=== PATIENT | female | born 1980 | race Caucasian/White ===

== ENCOUNTER 2017-07-27 17:43 | Emergency (ER) | payer MEDICAID ==
[~2017-07-27] VITALS: Ht 149.9 cm; Wt 59.4 kg
[~2017-07-27 17:43] MED LIST: AUGM875T3 PO; TRI-TAB PO
[2017-07-27 17:44] VITALS: BP 132/87; PULSE 105; RESP 16; TEMP 98.8; O2SAT 99
[2017-07-27] MEDS ORDERED: SE-NCHW CHEW (18:23)
--- NOTE | 2017-07-27 18:24 | PD ---
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 37-year-old presents for evaluation of vaginal bleeding and cramping. She reports that her last menstrual period was in March. Last month she had a positive test at home and she had another positive test 2 days ago. She reports that 2 days ago she started having some vaginal spotting and that is why she repeated the test. She has not yet established care with a vp integrity but she has an appointment on August 14. She reports that 2 hours prior to arrival she began having pelvic cramping and heavier vaginal bleeding. She reports that she has used 3 pads in the past few hours. The crampy pain is primarily in the suprapubic and bilateral adnexal region, constant, no aggravating or relieving factors. Denies nausea, vomiting, diarrhea, constipation, flank pain, dysuria. She believes that her blood type is O+. She has no other complaints at this time. [facility] Social History Alcohol Use: No Tobacco Use: No Allergies-Medications (Allergen,Severity, Reaction): Coded Allergies: penicillin G (Unverified Allergy, Intermediate, itching all over., 02/12/17 ) Reported Meds & Prescriptions Reported Meds & Active Scripts Active Reported Se-Alexandra 19 29-1 mg Chew ( Vit W/ Ferrous Fumara Chew) 1 Chew 1 Tab CHEW DAILY Review of Systems Except as stated in HPI: all other systems reviewed are Neg Physical Exam Narrative GENERAL: Well-developed well-nourished female no acute distress SKIN: Warm and dry. HEAD: Atraumatic. Normocephalic. EYES: Pupils equal and round. No scleral icterus. No injection or drainage. ENT: No nasal bleeding or discharge. Mucous membranes pink and moist. NECK: Trachea midline. No JVD. CARDIOVASCULAR: Regular rate and rhythm. No murmur appreciated. RESPIRATORY: No accessory muscle use. Clear to auscultation. Breath sounds equal bilaterally. GASTROINTESTINAL: Abdomen soft, mild tenderness to palpation in the lower quadrants without guarding. No CVA tenderness. MUSCULOSKELETAL: No obvious deformities. No clubbing. No cyanosis. No edema. NEUROLOGICAL: Awake and alert. No obvious cranial nerve deficits. Motor grossly within normal limits. Normal speech. PSYCHIATRIC: Appropriate mood and affect; insight and judgment normal. Data Data Last Documented VS Vital Signs Date Time Temp Pulse Resp B/P (MAP) Pulse Ox O2 Delivery O2 Flow Rate FiO2 07/27/17 19:16 77 14 114/60 (78) 100 07/27/17 17:44 98.8 Orders Orders Beta Hcg (Quant/Titer) (07/27/17 18:20) Complete Blood Count With Diff (07/27/17 18:20) Complete Rh (07/27/17 18:20) Urinalysis - C+S If Indicated (07/27/17 18:20) Ed Urine Pregnancytest Poc (07/27/17 18:20) Us Pelvis (Ques Pr/Ect)W Trans (07/27/17 ) Consult Obstetrics (07/27/17 ) Comprehensive Metabolic Panel (07/27/17 21:49) Ed Discharge Order (07/27/17 22:08) (Hub Use Only)Inp Phy Cons/Ref (07/27/17 ) Methotrexate Pf Inj (Methotrexate Pf Inj (07/27/17 22:30) Labs Laboratory Tests Test 07/27/17 18:30 07/27/17 18:35 Urine Color DARK-RED Urine Turbidity CLOUDY Urine pH 6.0 Urine Specific [place] 1.015 Urine Protein 100 mg/dL Urine Glucose (UA) NEG mg/dL Urine Ketones NEG mg/dL Urine Occult Blood LARGE Urine Nitrite NEG Urine Bilirubin NEG Urine Urobilinogen LESS THAN 2.0 MG/DL Urine Leukocyte Esterase SMALL Urine RBC /hpf Urine WBC 6 /hpf Urine Amorphous Sediment RARE Microscopic Urinalysis Comment CULT NOT INDICATED White Blood Count 8.6 TH/MM3 Red Blood Count 4.08 MIL/MM3 Hemoglobin 12.0 GM/DL Hematocrit 35.3 % Mean Corpuscular Volume 86.6 FL Mean Corpuscular Hemoglobin 29.3 PG Mean Corpuscular Hemoglobin Concent 33.8 % Red Cell Distribution Width 14.9 % Platelet Count 253 TH/MM3 Mean Platelet Volume 8.2 FL Neutrophils (%) (Auto) 69.1 % Lymphocytes (%) (Auto) 21.6 % Monocytes (%) (Auto) 7.9 % Eosinophils (%) (Auto) 1.0 % Basophils (%) (Auto) 0.4 % Neutrophils # (Auto) 5.9 TH/MM3 Lymphocytes # (Auto) 1.9 TH/MM3 Monocytes # (Auto) 0.7 TH/MM3 Eosinophils # (Auto) 0.1 TH/MM3 Basophils # (Auto) 0.0 TH/MM3 CBC Comment DIFF FINAL Differential Comment Blood Urea Nitrogen 15 MG/DL Creatinine 0.59 MG/DL Random Glucose 94 MG/DL Total Protein 7.2 GM/DL Albumin 3.5 GM/DL Calcium Level 8.6 MG/DL Alkaline Phosphatase 100 U/L Aspartate Amino Transf (AST/SGOT) 39 U/L Alanine Aminotransferase (ALT/SGPT) 45 U/L Total Bilirubin 0.2 MG/DL Sodium Level 139 MEQ/L Potassium Level 3.5 MEQ/L Chloride Level 109 MEQ/L Carbon Dioxide Level 21.5 MEQ/L Anion Gap 9 MEQ/L Estimat Glomerular Filtration Rate 115 ML/MIN Human Chorionic Gonadotropin, Quant 3152 MIU/ML MDM Medical Decision Making Medical Screen Exam Complete: Yes Emergency Medical Condition: Yes Medical Record Reviewed: Yes Differential Diagnosis Threatened , ectopic , demise Narrative Course CBC is unremarkable. Urine test is negative. Quantitative beta-hCG is 3152. Blood type is O+. Transvaginal ultrasound reveals CONCLUSION: Findings are highly suspicious for ectopic in the right adnexa with slight fluid suspicious for hemorrhage. Discussed with vp integrity sand control worker Dr. Ann who will come and see the patient in the ER. She is hemodynamically stable. Dr. Ann discussed in great detail with the patient her diagnosis, potential treatment with methotrexate, for which she consents, she is placing the orders. For ease of follow-up, she is having the patient return to the emergency room on Friday for her routine post-methotrexate 4 day repeat quantitative beta- hCG. She is sand control worker on and she will evaluate the results at that time. She is also having the patient return to the emergency room on Friday for 7-day repeat quantitative beta-hCG. She is sand control worker on Friday as well. Discussed all signs and symptoms that would warrant returning more urgently to the emergency room. She is stable for discharge. Diagnosis Primary Impression: Ectopic Additional Instructions: As discussed, return to the emergency room on July 30, for repeat quantitative beta-hCG. Return on August 02, for repeat quantitative beta hCG. If you develop severe abdominal pain, pass out, develop fevers, return immediately to the emergency room. Med/Other Pt SpecificInfo: No Change to Meds Disposition: 01 DISCHARGE HOME Condition: Stable Yifan Liang Jul 27, 2017 18:24
[2017-07-27 19:04] LABS: AUTOMATED NEUTROPHIL # 5.9 TH/MM3 (1.8-7.7); BASOPHIL % 0.4 % (0.0-2.0); EOSINOPHIL # 0.1 TH/MM3 (0-0.4); HEMATOCRIT 35.3 % (35.0-46.0); LYMPH % 21.6 % (9.0-44.0); LYMPHOCYTE # 1.9 TH/MM3 (1.0-4.8); MEAN CELL VOLUME 86.6 FL (80.0-100.0); MEAN CORPUSCULAR HEMOGLOBIN 29.3 PG (27.0-34.0); MEAN CORPUSCULAR HGB CONC 33.8 % (32.0-36.0); MEAN PLATELET VOLUME 8.2 FL (7.0-11.0); MONO % 7.9 % (0.0-8.0); MONOCYTE # 0.7 TH/MM3 (0-0.9); NEUT % 69.1 % (16.0-70.0); PLATELET COUNT 253 TH/MM3 (150-450); RED BLOOD COUNT 4.08 MIL/MM3 (4.00-5.30); RED CELL DISTRIBUTION WIDTH 14.9 % (11.6-17.2); WHITE BLOOD COUNT 8.6 TH/MM3 (4.0-11.0)
[2017-07-27 19:06] LABS: AMORPHOUS SEDIMENT, URINE RARE; BILIRUBIN, URINE NEG (NEG); BLOOD, URINE LARGE (NEG); GLUCOSE,URINE NEG (NEG); KETONE, URINE NEG (NEG); NITRITE,URINE NEG (NEG); URINE COLOR DARK-RED (YELLW/STRAW); URINE LEUKOCYTE ESTERASE SMALL (NEG)
[2017-07-27 19:16] VITALS: BP 114/60; PULSE 77; RESP 14; O2SAT 100
--- NOTE | 2017-07-27 20:18 | PD ---
Physical Exam Narrative General: The patient is a well-developed well-nourished female in no acute distress Head and Neck exam: Head is normocephalic atraumatic. Eyes: Pupils are equal round and reactive to light. Nose: Midline septum with pink mucous membranes Mouth: Dentition unremarkable. Moist mucus membranes. Posterior oropharynx is not erythematous. No tonsillar hypertrophy. Uvula midline. Airway patent. Neck: No palpable lymphadenopathy. No nuchal rigidity. No thyromegaly. Cardiovascular: Regular rate and rhythm without murmurs, gallops, or rubs. Lungs: Clear to auscultation bilaterally. No wheezes, rhonchi, or rales. Abdomen: Soft, tenderness on palpation in the suprapubic area and bilateral lower quadrants of the abdomen. No guarding, rebound, or rigidity. Normal bowel sounds are audible. Extremities: No clubbing, cyanosis, or edema. No calf tenderness on palpation. Back: No spinous process tenderness to palpation. The patient reports having bilateral CVA tenderness on palpation. Neurologic Exam: Grossly nonfocal. Skin Exam: No rash noted. Intact skin that is warm and dry. Data Data Last Documented VS Vital Signs Date Time Temp Pulse Resp B/P (MAP) Pulse Ox O2 Delivery O2 Flow Rate FiO2 07/27/17 23:41 07/27/17 23:22 82 14 99 07/27/17 17:44 98.8 Orders Orders Beta Hcg (Quant/Titer) (07/27/17 18:20) Complete Blood Count With Diff (07/27/17 18:20) Complete Rh (07/27/17 18:20) Urinalysis - C+S If Indicated (07/27/17 18:20) Ed Urine Pregnancytest Poc (07/27/17 18:20) Us Pelvis (Ques Pr/Ect)W Trans (07/27/17 ) Consult Obstetrics (07/27/17 ) Comprehensive Metabolic Panel (07/27/17 21:49) Ed Discharge Order (07/27/17 22:08) (Hub Use Only)Inp Phy Cons/Ref (07/27/17 ) Methotrexate Pf Inj (Methotrexate Pf Inj (07/27/17 22:30) Methotrexate Pf Inj (Methotrexate Pf Inj (07/27/17 22:45) Labs Laboratory Tests Test 07/27/17 18:30 07/27/17 18:35 Urine Color DARK-RED Urine Turbidity CLOUDY Urine pH 6.0 Urine Specific [place] 1.015 Urine Protein 100 mg/dL Urine Glucose (UA) NEG mg/dL Urine Ketones NEG mg/dL Urine Occult Blood LARGE Urine Nitrite NEG Urine Bilirubin NEG Urine Urobilinogen LESS THAN 2.0 MG/DL Urine Leukocyte Esterase SMALL Urine RBC /hpf Urine WBC 6 /hpf Urine Amorphous Sediment RARE Microscopic Urinalysis Comment CULT NOT INDICATED White Blood Count 8.6 TH/MM3 Red Blood Count 4.08 MIL/MM3 Hemoglobin 12.0 GM/DL Hematocrit 35.3 % Mean Corpuscular Volume 86.6 FL Mean Corpuscular Hemoglobin 29.3 PG Mean Corpuscular Hemoglobin Concent 33.8 % Red Cell Distribution Width 14.9 % Platelet Count 253 TH/MM3 Mean Platelet Volume 8.2 FL Neutrophils (%) (Auto) 69.1 % Lymphocytes (%) (Auto) 21.6 % Monocytes (%) (Auto) 7.9 % Eosinophils (%) (Auto) 1.0 % Basophils (%) (Auto) 0.4 % Neutrophils # (Auto) 5.9 TH/MM3 Lymphocytes # (Auto) 1.9 TH/MM3 Monocytes # (Auto) 0.7 TH/MM3 Eosinophils # (Auto) 0.1 TH/MM3 Basophils # (Auto) 0.0 TH/MM3 CBC Comment DIFF FINAL Differential Comment Blood Urea Nitrogen 15 MG/DL Creatinine 0.59 MG/DL Random Glucose 94 MG/DL Total Protein 7.2 GM/DL Albumin 3.5 GM/DL Calcium Level 8.6 MG/DL Alkaline Phosphatase 100 U/L Aspartate Amino Transf (AST/SGOT) 39 U/L Alanine Aminotransferase (ALT/SGPT) 45 U/L Total Bilirubin 0.2 MG/DL Sodium Level 139 MEQ/L Potassium Level 3.5 MEQ/L Chloride Level 109 MEQ/L Carbon Dioxide Level 21.5 MEQ/L Anion Gap 9 MEQ/L Estimat Glomerular Filtration Rate 115 ML/MIN Human Chorionic Gonadotropin, Quant 3152 MIU/ML [facility] Medical Record Reviewed: Yes Supervised Visit with KESHAWN: Yes Narrative Course I, Dr. Navas, have reviewed the advance practice practitioner's documentation and am in agreement, met with the patient face to face, made the diagnosis, and the medical decision making was done by me. The patient was initially evaluated by Yifan. Please see their complete history and physical. *My assessment and Findings: The patient presents with a history of vaginal bleeding and cramping reports that she has had a positive test at home. The patient is reportedly a . 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 The patient reports that her last was delivered vaginally without complication. During the course of the patients emergency department visit, the patients history, examination, and differential diagnosis were reviewed with the patient. The patient was placed on a air sampling and monitoring with oximetry and frequent blood pressure monitoring. The patient had IV access obtained and blood work sent for analysis. The patients laboratory studies were reviewed and remarkable for a CBC that is within normal limits, quantitative beta hCG is 3152, urinalysis shows 100 protein, large occult blood, small leukocyte esterase, innumerable rbc's, 6 wbc' s, culture not indicated. Blood type is O+, therefore RhoGAM is not indicated. Radiology studies were reviewed and remarkable for an ultrasound that showed findings highly suspicious for ectopic in the right adnexa with slight fluid suspicious for hemorrhage. The OB ED hospitalist was consulted regarding this patient's case. They did come to the emergency department and evaluate the patient. A CMP was added onto the patient's laboratory studies in preparation for starting the patient on methotrexate. Further recommendations of the OB hospitalist the patient was given methotrexate and will follow up per their recommendations of the emergency department. The patient is resting comfortably and feels better, is alert and in no distress. The patients results and examination findings were discussed with the patient. The repeat examination is unremarkable and benign. The history, exam, diagnostic testing, and current condition do not suggest any significant pathology to warrant further testing, continued ED treatment, admission, or surgical evaluation at this point. The vital signs have been stable. The patient does not have uncontrollable pain, intractable vomiting, or other significant symptoms. The patient's condition is stable and appropriate for discharge. The patient will pursue further outpatient evaluation with a primary care physician or other designated or consulting physician as indicated in the discharge instructions. The patient expressed understanding and was agreeable with this plan. Diagnosis Primary Impression: Ectopic Qualified Codes: O00.90 - Unspecified ectopic without intrauterine Alessandra Navas MD Jul 27, 2017 20:18
--- NOTE | 2017-07-27 20:58 | RADRPT ---
EXAM DATE/TIME: 07/27/2017 19:33 [place] COMPARISON: No previous studies available for comparison. INDICATIONS : Bleeding and pain with . LAB(S): Beta-hC MEDICAL HISTORY : . Gestational diabetes. SURGICAL HISTORY : None. ENCOUNTER: Initial ACUITY: 1 day PAIN SCORE: 7/10 LOCATION: Bilateral pelvis MEASUREMENTS: UTERUS: 9.8 x 8.2 x 5.5 cm ENDOMETRIAL STRIPE: 17 mm RIGHT OVARY: 7.2 x 4.3 x 4.6 cm LEFT OVARY: Non visualized. FREE FLUID: Yes Adjacent to the right ovary. CROWN RUMP LENGTH: Non visualized. = WKS DAYS FHR: Non visualized. BPM FINDINGS: Endometrial stripe appears thickened without evidence for intrauterine gestational sac areas multiple tiny nabothian cysts are seen. There is a cystic area in the right ovary measures 6.1 cm in size par ts of it appears like a tubular ring suspicious for ectopic with what appears to be possibl y nodular within it could questionably be a crown-rump. There is slight fluid in the right adnexa adj acent to the right ovary. CONCLUSION: Findings are highly suspicious for ectopic in the right adnexa with slight fluid suspicious for hemorrhage. Lauro Mera MD on July 27, 2017 at 20:51 Board Certified Radiologist. This report was verified electronically.
[2017-07-27 22:05] LABS: ALBUMIN 3.5 GM/DL (3.4-5.0); ALT (GPT) 45 U/L (10-53); AST (GOT) 39 U/L (15-37); BICARBONATE 21.5 MEQ/L (21.0-32.0); BLOOD UREA NITROGEN 15 MG/DL (7-18); CALCIUM 8.6 MG/DL (8.5-10.1); CHLORIDE 109 MEQ/L (98-107); CREATININE 0.59 MG/DL (0.50-1.00); GLOMERULAR FILTRATION RATE 115 ML/MIN (>89); GLUCOSE,RANDOM 94 MG/DL (74-106); SODIUM (NA) 139 MEQ/L (136-145)
[2017-07-27 22:07] LABS: ALKALINE PHOSPHATASE 100 U/L (45-117); TOTAL BILIRUBIN ADULT 0.2 MG/DL (0.2-1.0); TOTAL PROTEIN 7.2 GM/DL (6.4-8.2)
[2017-07-27] MEDS ORDERED: METHOTREXATE SOD PF 50 MG/2 ML VIAL IM SCH (22:30)
--- NOTE | 2017-07-27 22:41 | PD.CONS ---
HPI Chief Complaint VB in preg Date Seen: Jul 27, 2017 Time Seen: 20:29 Travel History International Travel<30 Days: No Contact w/Intl Traveler<30Days: No Known Affected Area: No History of Present Illness HPI Pt is a 37y/o with irregular cycles and positive UPT. LMP was March. Pt had a positive home test recently and started spotting on Friday and bleeding heavily today. She came to the ED for evaluation. She reports that the bleeding was heavy with 2-3 pads per hour but now is minimal. She has not seen an OBGYN since March ([facility]). This is a desired . In the ED, pt had labs performed and TVUS which was concerning for a R ectopic . Uterus is empty. Para: 1 : 2 History Past Medical History Medical History: Denies Significant Hx Obstetric History Obstetric History 1. 14m ago 2. current Past Surgical History Narrative Surgical LSC ovarian cystectomy Family History Family History: Negative Social History Alcohol Use: No Tobacco Use: No Substance Abuse: No Allergies-Medications (Allergen,Severity, Reaction): Coded Allergies: penicillin G (Unverified Allergy, Intermediate, itching all over., 02/12/17 ) Home Meds Reported Medications Vit W/ Ferrous Fumara Chew (Se- 19 29-1 mg Chew) 1 Chew, 1 TAB CHEW DAILY for Nutritional Supplement, EA 0 Refills 07/27/17 Discontinued Reported Medications Amoxicillin-Clavulanate (Augmentin) 875-125 Mg Tab, 1 TAB PO BID for Infection, TAB 0 Refills 02/12/17 Discontinued Scripts Norgestimate-Ethinyl Estradiol (Tri-Sprintec) 0.18/0.215/0.25 Mg-35 Mcg Tab, 1 TAB PO DAILY, #1 PACK 11 Refills Prov:Bere Escoto 02/12/17 Review of Systems Except as stated in HPI: all other systems reviewed are Neg Physical Exam Vital Signs Date Time Temp Pulse Resp B/P (MAP) Pulse Ox O2 Delivery O2 Flow Rate FiO2 07/27/17 19:16 77 14 114/60 (78) 100 07/27/17 19:14 77 14 07/27/17 17:44 98.8 105 16 132/87 (102) 99 Narrative General: well developed, well nourished, no acute distress HEENT: normocephalic atraumatic, extraocular movements intact, neck supple Abdomen: soft, nontender, nondistended Extremities: full range of motion Skin: normal coloration, no rashes, no suspicious skin lesions noted Neurologic: cranial nerves 2-12 grossly intact, normal muscle tone, normal gait Psychiatric: normal mood and affect, appropriate Pelvic: deferred Data Data Vital Signs Reviewed: Yes Orders Orders Beta Hcg (Quant/Titer) (07/27/17 18:20) Complete Blood Count With Diff (07/27/17 18:20) Complete Rh (07/27/17 18:20) Urinalysis - C+S If Indicated (07/27/17 18:20) Ed Urine Pregnancytest Poc (07/27/17 18:20) Us Pelvis (Ques Pr/Ect)W Trans (07/27/17 ) Consult Obstetrics (07/27/17 ) Comprehensive Metabolic Panel (07/27/17 21:49) Ed Discharge Order (07/27/17 22:08) (Hub Use Only)Inp Phy Cons/Ref (07/27/17 ) Methotrexate Pf Inj (Methotrexate Pf Inj (07/27/17 22:30) Labs Laboratory Tests Test 07/27/17 18:30 07/27/17 18:35 Urine Color DARK-RED Urine Turbidity CLOUDY Urine pH 6.0 Urine Specific [place] 1.015 Urine Protein 100 Urine Glucose (UA) NEG Urine Ketones NEG Urine Occult Blood LARGE Urine Nitrite NEG Urine Bilirubin NEG Urine Urobilinogen LESS THAN 2.0 Urine Leukocyte Esterase SMALL Urine RBC Urine WBC 6 Urine Amorphous Sediment RARE Microscopic Urinalysis Comment CULT NOT INDICATED White Blood Count 8.6 Red Blood Count 4.08 Hemoglobin 12.0 Hematocrit 35.3 Mean Corpuscular Volume 86.6 Mean Corpuscular Hemoglobin 29.3 Mean Corpuscular Hemoglobin Concent 33.8 Red Cell Distribution Width 14.9 Platelet Count 253 Mean Platelet Volume 8.2 Neutrophils (%) (Auto) 69.1 Lymphocytes (%) (Auto) 21.6 Monocytes (%) (Auto) 7.9 Eosinophils (%) (Auto) 1.0 Basophils (%) (Auto) 0.4 Neutrophils # (Auto) 5.9 Lymphocytes # (Auto) 1.9 Monocytes # (Auto) 0.7 Eosinophils # (Auto) 0.1 Basophils # (Auto) 0.0 CBC Comment DIFF FINAL Differential Comment Blood Urea Nitrogen 15 Creatinine 0.59 Random Glucose 94 Total Protein 7.2 Albumin 3.5 Calcium Level 8.6 Alkaline Phosphatase 100 Aspartate Amino Transf (AST/SGOT) 39 Alanine Aminotransferase (ALT/SGPT) 45 Total Bilirubin 0.2 Sodium Level 139 Potassium Level 3.5 Chloride Level 109 Carbon Dioxide Level 21.5 Anion Gap 9 Estimat Glomerular Filtration Rate 115 Human Chorionic Gonadotropin, Quant 3152 TVUS: UTERUS: 9.8 x 8.2 x 5.5 cm ENDOMETRIAL STRIPE: 17 mm RIGHT OVARY: 7.2 x 4.3 x 4.6 cm LEFT OVARY: Non visualized. FREE FLUID: Yes Adjacent to the right ovary. CROWN RUMP LENGTH: Non visualized. = WKS DAYS FINDINGS: Endometrial stripe appears thickened without evidence for intrauterine gestational sac areas multiple tiny nabothian cysts are seen. There is a cystic area in the right ovary measures 6.1 cm in size parts of it appears like a tubular ring suspicious for ectopic with what appears to be possibly nodular within it could questionably be a crown-rump. There is slight fluid in the right adnexa adjacent to the right ovary. CONCLUSION: Findings are highly suspicious for ectopic in the right adnexa with slight fluid suspicious for hemorrhage. [facility] Medical Record Reviewed: Yes Plan 37y/o with likely R ectopic and VB. Pt counseled on dx and inability for this to achieve viability. She and were appropriately tearful. They were counseled on tx options including MTX and surgery. In cases where pts are hemodynamically stable ( which she is), MTX is preferred. Risks, benefits and alternatives of methotrexate therapy discussed with the patient. She is hemodynamically stable at this time. Her laboratory assessment is within normal limits and she has no other contraindications to treatment. I emphasized her need to be compliant with regular follow up of quantitative CGs and that this could take several weeks to resolve. We discussed approximately a 10-20% risk of requiring a second dose of methotrexate if fall in HCG if not sufficient between 4 and 7 days. If she goes on to need another dose of MTX, there is a 5-8% risk of subsequently needing surgery. I stated that she should expect mild abdominal pain over the next week as a side effect of the MTX. However, if she experiences severe and sudden abdominal pain, this could be a sign of a ruptured ectopic and she should present to the ED immediately. I strongly emphasized that she must avoid as this could complicate her follow up. She agreed to use abstinence for control until resolution of this . All questions were answered. 1. Ectopic - vitals stable, no pain on exam no signs of rupture, no cardiac activity , able to follow-up - Rh + - consent for MTX, given 70mg IM per BSA dosing - counseled not to take PNV, folic acid, NSAIDs, EtOH - tylenol for mild pain and cramps that may occur from MTX - STRICT ectopic precautions, advised to come back with abdominal pain despite medication, vaginal bleeding or other concerning signs/symptoms - instructions to return day 4 and 7 in discharge papers (signed by pt) Phone numbers: [phone] (pt's cell) [phone] ('s cell) [place] SPEAKING ONLY!!! Diagnosis: 1. R ectopic Disposition: DISCHARGE HOME Condition: Stable Additional Instructions: As discussed, return to the emergency room on July 30, for repeat quantitative beta-hCG. Return on August 02, for repeat quantitative beta hCG. If you develop severe abdominal pain, pass out, develop fevers, return immediately to the emergency room. Deyanira Escobedo MD Jul 27, 2017 22:40
[2017-07-27] MEDS ORDERED: METHOTREXATE IM ONE (22:45)
[2017-07-27 23:22] VITALS: BP 124/68; PULSE 82; RESP 14; O2SAT 99
== END 2017-07-28 02:20 | disposition home or self-care (01) ==
LOC: NEPC 17:43
DX: O00.90 Unspecified ectopic pregnancy without intrauterine pregnancy (principal)
CPT/HCPCS: 76700; 76817; 80053; 81001; 84702; 84703; 85025; 86901; 99284; J9250

== ENCOUNTER 2017-07-30 12:21 | Emergency (ER) | payer MEDICAID ==
[~2017-07-30] VITALS: Ht 149.9 cm; Wt 54.0 kg
[~2017-07-30 12:21] MED LIST changes: -AUGM875T3 PO; +SE-NCHW CHEW; -TRI-TAB PO
[2017-07-30 12:23] VITALS: BP 124/57; PULSE 80; RESP 16; TEMP 98.8; O2SAT 100
--- NOTE | 2017-07-30 14:44 | PD ---
HPI Chief Complaint: Related Problem Time Seen by Provider: 14:10 Travel History International Travel<30 days: No Contact w/Intl Traveler<30days: No Traveled to known affect area: No History of Present Illness HPI The patient is a 37-year-old speaking female who presents emergency department for right lower quadrant abdominal pain and vaginal bleeding. The patient was seen in emergency department on Friday where she had a beta hCG that was positive, just greater than 3000, and an ultrasound suspicious for ectopic . The patient was evaluated by gynecology, elected to try methotrexate. She was administered methotrexate advised to return for serial beta hCGs. She continues to complain of right lower quadrant abdominal pain, had heavy vaginal bleeding yesterday which is slightly improved today. She denies any nausea or vomiting. She is a who had a previous spontaneous vaginal delivery. Patient's last menstrual cycle was March 2017. The translates at bedside per the patient's request. PFSH Past Medical History Diminished Hearing: No ?: LMP: 03/2017 : 2 Para: 1 Ectopic : Yes Past Surgical History Gynecologic Surgery: Yes Social History Alcohol Use: No Tobacco Use: No Substance Use: No Allergies-Medications (Allergen,Severity, Reaction): Coded Allergies: penicillin G (Unverified Allergy, Intermediate, itching all over., 02/12/17 ) Reported Meds & Prescriptions Reported Meds & Active Scripts Active Reported Se-Alexandra 19 29-1 mg Chew ( Vit W/ Ferrous Fumara Chew) 1 Chew 1 Tab CHEW DAILY Review of Systems Except as stated in HPI: all other systems reviewed are Neg General / Constitutional: No: Fever Cardiovascular: No: Chest Pain or Discomfort Respiratory: No: Shortness of Breath Gastrointestinal: Positive: Abdominal Pain, No: Nausea, Vomiting Genitourinary: Positive: Pelvic Pain, Vaginal Bleeding Physical Exam Narrative GENERAL: Awake, alert, pleasant 37 year-old female who appears her stated age and is in no acute respiratory distress. SKIN: Focused skin assessment warm/dry. HEAD: Atraumatic. Normocephalic. NECK: Trachea midline. No JVD. CARDIOVASCULAR: Regular rate and rhythm. No murmur appreciated. RESPIRATORY: No accessory muscle use. Clear to auscultation. Breath sounds equal bilaterally. GASTROINTESTINAL: Abdomen soft, tender palpation suprapubic and right lower quadrant. No guarding or rigidity. MUSCULOSKELETAL: No obvious deformities. No clubbing. No cyanosis. No edema. NEUROLOGICAL: Awake and alert. No obvious cranial nerve deficits. Motor grossly within normal limits. Normal speech. PSYCHIATRIC: Appropriate mood and affect; insight and judgment normal. Data Data Last Documented VS Vital Signs Date Time Temp Pulse Resp B/P (MAP) Pulse Ox O2 Delivery O2 Flow Rate FiO2 07/30/17 12:23 98.8 80 16 124/57 (79) 100 Room Air Orders Orders Beta Hcg (Quant/Titer) (07/30/17 12:45) Labs Laboratory Tests Test 07/30/17 13:44 Human Chorionic Gonadotropin, Quant 388 MIU/ML MDM Medical Decision Making Medical Screen Exam Complete: Yes Emergency Medical Condition: Yes Medical Record Reviewed: Yes Interpretation(s) Laboratory Tests Test 07/30/17 13:44 Human Chorionic Gonadotropin, Quant 388 MIU/ML Differential Diagnosis Differential diagnosis includes ectopic , threatened AB, incomplete AB , missed AB, ruptured ectopic . Narrative Course I reviewed the patient's EMR, she was seen by gynecology several days ago after ultrasound was suspicious for ectopic . After discussion regarding surgery versus methotrexate, she elected to try methotrexate. She continues to have symptoms, however, was advised she may continue to have some bleeding and abdominal pain. Repeat serial quantitative beta hCG was sent to lab. The patient's beta HCG 3 days ago was 3152, today's 388. The patient is O+, no indication for RhoGAM. [place] [phone], after discussion he stated the patient will continue to have some pain and some bleeding, however, the beta ACG has fallen, he states the beta ACG can be repeated in one week and the patient can follow up at the [facility] [place]. The patient will be prescribed pain medication. She is advised to return if symptoms worsen or progress. Diagnosis Primary Impression: Ectopic Qualified Codes: O00.90 - Unspecified ectopic without intrauterine Referrals: [facility] Patient Instructions: General Instructions Additional Instructions: Medications as directed. Repeat beta hCG in one week, follow-up with the [facility] [place]. Return for significant pain. Med/Other Pt SpecificInfo: Prescription(s) given Scripts Hydrocodone-Acetaminophen ([place]) 5 Mg-325 Mg Tab 1 TAB PO Q6H Y for PAIN, #15 TAB 0 Refills Prov: Nicholas Crockett MD 07/30/17 Disposition: 01 DISCHARGE HOME Condition: Stable Nicholas Crockett MD Jul 30, 2017 14:44
[2017-07-30] MEDS ORDERED: NORC5TAB PO (15:44)
[2017-07-30] MEDS ORDERED: ACETAMINOPHEN/HYDROcodone 325 MG/5 MG TAB PO ONE (15:45)
== END 2017-07-30 16:18 | disposition home or self-care (01) ==
LOC: NEPD 12:21
DX: O00.90 Unspecified ectopic pregnancy without intrauterine pregnancy (principal)
CPT/HCPCS: 84702; 99283

== ENCOUNTER 2018-08-08 06:58 | Inpatient (IN) ==
[2018-08-08] MEDS ORDERED: Naloxone Inj 0.4 MG/ML Vial IV.PUSH PRN ×2 (07:54→09:49)
[2018-08-08] MEDS ORDERED: Sodium Chlor 0.9% Inj 500 ML IV.SIG PRN (07:54)
[2018-08-08] MEDS ORDERED: Sod Chloride 0.9% Inj 1,000 ML IV.CONT PRN (07:54)
[2018-08-08] MEDS ORDERED: Oxytocin 30 Units/500ml Premix 30 UNITS/500 ML BAG IV.SIG ONE (07:54)
[2018-08-08] MEDS ORDERED: fentaNYL Citrate Inj 100 MCG/2 ML Ampul IV.PUSH PRN ×2 (07:54)
[2018-08-08] MEDS ORDERED: Citric Acid/Sodium Citrate Liq 30 ML UDC PO SCH (08:00)
--- NOTE | 2018-08-08 08:03 | P.HPOB ---
OB - ED Note Patient Name: Opal Simms Date of : 80 Patient Status: Emergency Emergency Provider: Andrew Hutchinson Date: 08/08/18 07:55 Initialization Date: 08/08/18 07:55 History of Present Illness Primary Care Physician: NOT REQUIRED Dr. Andrew Marks Chief Complaint: Water broke and amisha History of Present Illness: This 38-year-old at 33-34 weeks presents with gross rupture of the membranes and labor. She has gross rupture the membranes here in triage and is dilated 6/ 100/-1. She denies vaginal bleeding or severe pain but is noting contractions that are uncomfortable. Patient is Polish-speaking only Weeks Gestation:: 33 Para: 1 : 2 Review of Systems All other systems reviewed negative except as stated in HPI PMFSH - Tobacco History Smoking Status: Never smoker - Alcohol History How Often Do You Have a Drink Containing Alcohol: Never - Substance Use History Substance History: No History of Abuse - Travel History History of Recent Travel: No Recent Travel in the [place] Within the Last 8 Weeks: No Recent Travel Out of the Country Within the Last 8 Weeks: No Medications and Allergies Allergies Allergy/AdvReac Type Severity Reaction Status Date / Time penicillin G Allergy Intermediate itching Unverified 02/12/17 14:37 all over. Exam Vital signs: Vital Signs 08/08/18 07:33 Temperature 97.7 F Pulse Rate 71 Blood Pressure 122/69 Narrative: GENERAL: Well-nourished, well-developed patient. SKIN: Warm and dry. HEAD: Normocephalic and atraumatic. EYES: No scleral icterus. No injection or drainage. ENT: No nasal drainage noted. Mucous membranes pink. Airway patent. NECK: Supple, trachea midline. No JVD. CARDIOVASCULAR: Regular rate and rhythm without murmurs, gallops, or rubs. RESPIRATORY: Breath sounds equal bilaterally. No accessory muscle use. BREASTS: Bilateral exam showed no masses , no retractions, no nipple discharge. ABDOMEN/GI: Abdomen soft, non-tender, bowel sounds present, no rebound, no guarding Gravid to [-33] weeks size Fundal Height: [33-] GENITOURINARY: External Genitalia: intact and normal in appearance BUS glands: [-] Cervix: [-ant] Dilatation: [-6] Effacement: [100-] Station: [-1] Presentation: [vtx-] Membranes: [ ruptured] Uterine Contractions: [reg-] FHT's: Category: [1-] Baseline: [133-] Reactive: [-R] Variability: [mod-] Decels: [none-] EXTREMITIES: No cyanosis or edema. BACK: Nontender without obvious deformity. No CVA tenderness. NEUROLOGICAL: Awake and alert. Motor and sensory grossly within normal limits. Five out of 5 muscle strength in all muscle groups. Normal speech. Assessment and Plan - Diagnosis (1) premature rupture of membranes Code(s): O42.919 - premature rupture of membranes, unspecified as to length of time between rupture and onset of labor, unspecified trimester Status: Acute (2) labor in third trimester Code(s): O60.03 - labor without delivery, third trimester Status: Acute (3) 33 weeks gestation of Code(s): Z3A.33 - 33 weeks gestation of Status: Acute - Plan This multiparous patient at 33-34 weeks has premature rupture of membranes and is in active labor. Plan to admit to labor and delivery, cover with IV antibiotics, epidural anesthesia, and anticipate vaginal delivery shortly Discharge Plan - Physicians Team ED Provider: Andrew Hutchinson Primary Care Provider: NOT REQUIRED, - Discharge Instructions Print Language: Polish
[2018-08-08 08:23] LABS: Baso % (Auto) 0.4 % (0.0-2.0); Eos % (Auto) 0.6 % (0.0-4.0); Hematocrit 41.1 % (35.0-46.0); Hemoglobin 14.2 gm/dL (11.6-15.3); Lymph # (Auto) 1.2 th/mm3 (1.0-4.8); Lymph % (Auto) 20.7 % (9.0-44.0); Mean Corpuscular HGB Conc 34.7 % (32.0-36.0); Mean Corpuscular Hemoglobin 33.9 pg (27.0-34.0); Mean Corpuscular Volume 97.7 fL (80.0-100.0); Mono # (Auto) 0.5 th/mm3 (0.0-0.9); Mono % (Auto) 8.3 % (0.0-8.0); Neut # (Auto) 4.1 th/mm3 (1.8-7.7); Platelet Count 243 th/mm3 (150-450); White Blood Count 5.9 th/mm3 (4.0-11.0)
[2018-08-08] MEDS ORDERED: fentaNYL 2MCG-Bupiv 0.125% Epi 150 ML EPIDURAL ONE (08:45)
[2018-08-08 09:02] LABS: Bilirubin,Urine Negative (Negative); Clarity,Urine Clear (Clear); Color,Urine Yellow (Yellw/Straw); Glucose,Urine (UA) Negative (Negative); Leukocyte Esterase,Urine Negative (Negative); Mucus,Urine Few /lpf (Occasional); Nitrite,Urine Negative (Negative); Specific Gravity,Urine 1.004 (1.002-1.035); Squamous Epithelial Cell,Urine 1 /hpf (0-5)
[2018-08-08] MEDS ORDERED: fentaNYL 2MCG-Bupiv 0.125% Epi 150 ML EPIDURAL PRN (09:42)
[2018-08-08] MEDS ORDERED: fentaNYL Citrate Inj 100 MCG/2 ML Ampul EPIDURAL ONE (09:45)
[2018-08-08] MEDS ORDERED: Bisacodyl 10 MG Supp RECTAL PRN (09:49)
[2018-08-08] MEDS ORDERED: Benzocaine 20% Top Spray 60 ML Can TOPICAL PRN (09:49)
[2018-08-08] MEDS ORDERED: Witch Hazel 50%/Glyderin 12.5% 40 Pad Jar RECTAL PRN (09:49)
[2018-08-08] MEDS ORDERED: Oxytocin 30 Units/500ml Premix 30 UNITS/500 ML BAG IV.CONT PRN (09:49)
--- NOTE | 2018-08-08 09:50 | P.OBDELI ---
Weeks Gestation: 33 Patient Started Active Labor: Yes Medical Induction of Labor: No Artificial Rupture of Membrane: No Anesthesia: Epidural Episiotomy: none Vaginal Delivery: Normal, Spontaneous Presentation: Occiput anterior Nuchal Cord: None Delayed Cord Clamping (45 sec): Yes Placenta: Spontaneous delivery, Intact Laceration: None Estimated blood loss (mL): 100 Infant: Male Female B Infant Delivery Date: 08/08/18 Infant Delivery Time: 09:36 Weight: 2150 kg score (1 min): 9 score (5 min): 9 Additional Information: Delivered by Dr. Cummins Supervised by Dr. Hutchinson Placenta sent to Pathology. Cord Gas Obtained.
[2018-08-08 09:51] LABS: Cord Arterial Blood HCO3 23.3
[2018-08-08] MEDS ORDERED: Clindamycin 900 mg/NS Premix 900 MG/50 ML PIGGYBACK IV.SIG SCH (09:55)
[2018-08-08] MEDS ORDERED: Sodium Chlor 0.9% Inj 10 ML ONE (11:51)
[2018-08-08] MEDS ORDERED: Lidocaaine 1.5%/Epinephrine 1:200,000 PF Inj 5 ML Amp ONE (11:51)
[2018-08-08] MEDS ORDERED: Lidocaine PF 1% Inj 5 ML Vial ONE (11:51)
[2018-08-08] MEDS ORDERED: Diphtheria/Tetanus/Pertussis Vaccine Inj 0.5 ML Syringe IM ONE (16:00)
[2018-08-08] MEDS ORDERED: Measles/Mumps/Rubella Vaccine Inj 0.5 ML Vial SQ ONE (16:00)
[2018-08-08] MEDS ORDERED: Zolpidem Tartrate 5 MG Tablet PO PRN (21:00)
[2018-08-08] MEDS: Senna/Docusate Sodium 8.6/50 MG Tablet PO SCH (21:59)
[2018-08-09] MEDS: Acetaminophen 325 MG Tablet PO PRN (05:12)
--- NOTE | 2018-08-09 08:22 | P.PNOB ---
Subjective Interval history: Patient is a 38-year-old delivered at 33 weeks. Patient is day 1 after . Patient's pain is well-controlled. Patient reports eating and drinking without any nausea or vomiting. Patient reports minimal bleeding. Patient has passed gas but no bowel movements. Patient is walking with lower extremity pain. Patient reports desire for contraception and breast-feeding. Patient willing to follow up with Dr. Carreon or a Citizen Of [place] speaking provider for primary/OB care. Objective Vital Signs/I&O: Vital Signs 08/08/18 08:50 08/08/18 08:55 08/08/18 09:45 Temperature Pulse Rate 88 79 Respiratory Rate 18 Blood Pressure 119/86 116/58 L 08/08/18 10:05 08/08/18 10:20 08/08/18 10:30 Temperature Pulse Rate 79 Respiratory Rate 18 18 18 Blood Pressure 122/80 08/08/18 11:20 08/08/18 20:00 Temperature 97.6 F 97.9 F Pulse Rate 72 67 Respiratory Rate 18 16 Blood Pressure 104/59 L 115/67 Result Diagrams: 08/08/18 08:05 Objective Remarks: GENERAL: Well-nourished, well-developed patient. CARDIOVASCULAR: Regular rate and rhythm without murmurs, gallops, or rubs. RESPIRATORY: Breath sounds equal bilaterally. No accessory muscle use. ABDOMEN/GI: Abdomen soft, non-tender. Fundus: Firm, non-tender at umbilicus. GENITOURINARY: Light to moderate bleeding. EXTREMITIES: No cyanosis or edema, non-tender, without signs of DVT. Medications and IVs: Active Medications Acetaminophen (Tylenol) 650 mg PO Q4H PRN PRN Reason: PAIN SCALE 1 TO 2 Last Admin: 08/09/18 05:12 Dose: 650 mg Al Hydroxide/Mg Hydroxide (Milk Of Magnesia Liq) 30 ml PO Q12H PRN PRN Reason: Mild Constipation Benzocaine (Americaine 20% [place]) 1 spray TOPICAL Q4H PRN PRN Reason: For Perineum Discomfort Bisacodyl (Dulcolax Supp) 10 mg RECTAL DAILY PRN PRN Reason: SEVERE CONSITIPATION Diphenhydramine HCl (Benadryl) 25 mg PO Q6H PRN PRN Reason: rash/pruiritis Last Admin: 08/08/18 13:14 Dose: 25 mg Ephedrine Sulfate (Ephedrine/Ns Syringe) 10 mg IV.PUSH UNSCH PRN PRN Reason: SEE LABEL COMMENTS Stop: 08/09/18 09:42 Fentanyl/Bupivacaine/Sodium Chlor (Fentanyl 2 Mcg-Bupiv 0.125% Epi) 150 mls @ 10 mls/hr EPIDURAL PRN PRN PRN Reason: for Labor Pain Oxytocin (Pitocin 30 Units/Ns 500 Ml Premix) 30 units in 500 mls @ 100 mls/hr IV.CONT UNSCH PRN PRN Reason: Heavy bleeding Ibuprofen (Motrin) 800 mg PO Q8H PRN PRN Reason: For Cramping Last Admin: 08/09/18 05:11 Dose: 800 mg Lactulose (Lactulose Liq) 30 ml PO DAILY PRN PRN Reason: SEVERE CONSITIPATION Miscellaneous Information (Misc Information) 1 each OTHER UNSCH PRN PRN Reason: SEE LABEL COMMENTS Stop: 08/09/18 09:42 Miscellaneous Information (Misc Information) 1 each OTHER UNSCH PRN PRN Reason: SEE LABEL COMMENTS Stop: 08/09/18 09:42 Naloxone HCl (Narcan Inj) 0.1 mg IV.PUSH Q2M PRN PRN Reason: for opiate reversal Ondansetron HCl (Zofran Odt) 4 mg PO Q6H PRN PRN Reason: NAUSEA OR VOMITING Oxycodone/Acetaminophen (Percocet 5/325 Mg) 1 tab PO Q4H PRN PRN Reason: PAIN SCALE 3 TO 5 Oxycodone/Acetaminophen (Percocet 5/325 Mg) 2 tab PO Q4H PRN PRN Reason: PAIN SCALE 6 TO 10 Senna/Docusate Sodium (Ann-Colace) 1 tab PO BID [facility] Last Admin: 08/08/18 21:59 Dose: 1 tab Sennosides (Senokot) 17.2 mg PO Q12H PRN PRN Reason: Moderate Constipation Sodium Chloride (Ns Flush) 2 ml IV.FLUSH BID [facility] Last Admin: 08/08/18 21:59 Dose: 2 ml Sodium Chloride (Ns Flush) 2 ml IV.FLUSH PRN PRN PRN Reason: FLUSH AFTER USING IV ACCESS Witch Yessi/Glycerin (Tucks Pads) 1 applicatio RECTAL QID PRN PRN Reason: HEMORRHOIDS Zolpidem Tartrate (Ambien) 5 mg PO HS PRN PRN Reason: SLEEP Assessment and Plan - Diagnosis (1) Vaginal delivery Code(s): O80 - Encounter for full-term uncomplicated delivery Status: Acute - Plan Patient is a 38-year-old delivered at 33 weeks. Patient is day 1 after . Continue routine care. Motrin and Percocet when necessary for pain. Encourage OOB Pelvic rest for 6 weeks will need follow-up appointment at that time. Contraception: Will discuss with OB provider appropriately. Complaining of b/l Lower ext pain with ambulation: U/S ordered. Anticipate discharge tomorrow Discussed with Dr. Breaux . - Attending Attestation The exam, history, and the medical decision-making described in the above note were completed with the assistance of the resident physician. I reviewed and agree with the findings presented. I attest that I had a [id number] encounter with the patient on the same day, and personally performed and documented my assessment and findings in the medical record.
--- NOTE | 2018-08-09 09:14 | US ---
EXAM DATE: 08/09/2018 9:08 AM EST AGE/SEX: 38 years / Female INDICATIONS: Bilateral Leg pain. CLINICAL DATA: This is the patient's initial encounter. Patient reports that signs and symptoms have been present for 1 day and indicates a pain score of 2/10. MEDICAL/SURGICAL HISTORY: . No known medical history. . COMPARISON: No prior exams available for comparison. TECHNIQUE: Venous ultrasound of both lower extremities was performed from the inguinal ligament to t he proximal calf. Real-time, color Doppler and spectral tracing, compression and augmentation techni ques were used. FINDINGS: Right Leg: Normal compression of the deep venous system from the inguinal region to the proximal bruce f. No echogenic clot is seen. Normal response of the venous system to augmentation and respiration. Left Leg: Normal compression of the deep venous system from the inguinal region to the proximal calf . No echogenic clot is seen. Normal response of the venous system to augmentation and respiration. Other: None. CONCLUSION: 1. The study is negative for bilateral lower extremity deep venous thrombosis. Electronically signed by: Abe Connors MD Board Certified Radiologist 08/09/2018 9:13 AM EST
[2018-08-09] MEDS: Senna/Docusate Sodium 8.6/50 MG Tablet PO SCH ×2 (11:23→22:11)
[2018-08-10] MEDS: Acetaminophen 325 MG Tablet PO PRN (05:41)
--- NOTE | 2018-08-10 07:26 | P.PNOB ---
Subjective Post day: 2 Interval history: Patient is a 38-year-old delivered at 33 weeks and 4 days. Patient is day 2 after vaginal. Patient's pain is well-controlled. Patient reports eating and drinking without any nausea or vomiting. Patient reports minimal bleeding. Patient has passed gas but no bowel movements. Patient has some lower extremity pain and itching, thinks it is from anesthesia. Patient reports desire for breast-feeding. Objective Vital Signs/I&O: Vital Signs 08/09/18 08:45 08/09/18 22:14 Temperature 97.7 F 98.1 F Pulse Rate 77 73 Respiratory Rate 16 16 Blood Pressure 104/69 114/60 Result Diagrams: 08/08/18 08:05 Objective Remarks: GENERAL: Well-nourished, well-developed patient. CARDIOVASCULAR: Regular rate and rhythm without murmurs, gallops, or rubs. RESPIRATORY: Breath sounds equal bilaterally. No accessory muscle use. ABDOMEN/GI: Abdomen soft, non-tender. Fundus: Firm, non-tender at umbilicus. GENITOURINARY: Light to moderate bleeding. EXTREMITIES: No cyanosis or edema, non-tender, without signs of DVT. Slight redness of the lower extremities up to the shins. Medications and IVs: Active Medications Acetaminophen (Tylenol) 650 mg PO Q4H PRN PRN Reason: PAIN SCALE 1 TO 2 Last Admin: 08/10/18 05:41 Dose: 650 mg Al Hydroxide/Mg Hydroxide (Milk Of Yadiel Pal) 30 ml PO Q12H PRN PRN Reason: Mild Constipation Benzocaine (Americaine 20% [place]) 1 spray TOPICAL Q4H PRN PRN Reason: For Perineum Discomfort Bisacodyl (Dulcolax Supp) 10 mg RECTAL DAILY PRN PRN Reason: SEVERE CONSITIPATION Diphenhydramine HCl (Benadryl) 25 mg PO Q6H PRN PRN Reason: rash/pruiritis Last Admin: 08/09/18 22:11 Dose: 25 mg Fentanyl/Bupivacaine/Sodium Chlor (Fentanyl 2 Mcg-Bupiv 0.125% Epi) 150 mls @ 10 mls/hr EPIDURAL PRN PRN PRN Reason: for Labor Pain Oxytocin (Pitocin 30 Units/Ns 500 Ml Premix) 30 units in 500 mls @ 100 mls/hr IV.CONT UNSCH PRN PRN Reason: Heavy bleeding Ibuprofen (Motrin) 800 mg PO Q8H PRN PRN Reason: For Cramping Last Admin: 08/10/18 05:41 Dose: 800 mg Lactulose (Lactulose Liq) 30 ml PO DAILY PRN PRN Reason: SEVERE CONSITIPATION Naloxone HCl (Narcan Inj) 0.1 mg IV.PUSH Q2M PRN PRN Reason: for opiate reversal Ondansetron HCl (Zofran Odt) 4 mg PO Q6H PRN PRN Reason: NAUSEA OR VOMITING Oxycodone/Acetaminophen (Percocet 5/325 Mg) 1 tab PO Q4H PRN PRN Reason: PAIN SCALE 3 TO 5 Oxycodone/Acetaminophen (Percocet 5/325 Mg) 2 tab PO Q4H PRN PRN Reason: PAIN SCALE 6 TO 10 Senna/Docusate Sodium (Ann-Colace) 1 tab PO BID [facility] Last Admin: 08/09/18 22:11 Dose: 1 tab Sennosides (Senokot) 17.2 mg PO Q12H PRN PRN Reason: Moderate Constipation Sodium Chloride (Ns Flush) 2 ml IV.FLUSH BID [facility] Last Admin: 08/09/18 22:11 Dose: Not Given Sodium Chloride (Ns Flush) 2 ml IV.FLUSH PRN PRN PRN Reason: FLUSH AFTER USING IV ACCESS Witch Yessi/Glycerin (Tucks Pads) 1 applicatio RECTAL QID PRN PRN Reason: HEMORRHOIDS Zinc Acetate/Diphenhydramine (Benadryl 2% Cream) 1 applicatio TOPICAL Q8H PRN PRN Reason: ITCHING AND/OR RASH Zolpidem Tartrate (Ambien) 5 mg PO HS PRN PRN Reason: SLEEP Assessment and Plan - Diagnosis (1) Vaginal delivery Code(s): O80 - Encounter for full-term uncomplicated delivery Status: Acute - Plan Patient is a 38-year-old delivered at 33 weeks. Patient is day 2 after . Continue routine care. Motrin and Tylenol when necessary for pain. Encourage OOB Pelvic rest for 6 weeks will need follow-up appointment at that time. Contraception: Will discuss with OB provider B/l lower extremity US wnl. Oral and topical benadryl ordered for rash. Diff: allergies v contact dermatitis v cholestasis of . Counseled that if pruritus continues 3 days after delivery, to see a provider. Anticipate discharge today Discussed with OB hospitalist
[2018-08-10 07:56] VITALS: BP 115/63
[2018-08-10 07:57] VITALS: PULSE 67; RESP 18; TEMP 97.9
[2018-08-10] MEDS ORDERED: diphenhydrAMINE 2%/Zinc Cream 30 GM Tube TOPICAL PRN (08:00)
== END 2018-08-10 12:04 | disposition home or self-care (01) | DRG 807 ==
LOC: HOBED 06:58 → H2E 07:57 → H1EA 11:25
PROVIDERS: ADMIT Obstetrics & Gynecology Maternal & Fetal Medicine; ATTEND Obstetrics & Gynecology Maternal & Fetal Medicine
CPT/HCPCS: 59025; 81001; 83518; 84112; 85025; 87150; 88307; 90715; 93970; 99285; J7120